=== PATIENT | female | born 1980 | race Hispanic/Latino ===

== ENCOUNTER 2021-04-29 14:56 | Emergency (ER) | payer OTHER ==
[~2021-04-29] VITALS: Ht 142.2 cm; Wt 68.0 kg
[2021-04-29] MEDS ORDERED: KETOROLAC TROMETHAMINE 60 MG/2 ML VIAL IM ONE (17:00)
[2021-04-29] MEDS ORDERED: KETOROLAC TROMETHAMINE 60 MG/2 ML VIAL ONE (17:05)
[2021-04-29] MEDS ORDERED: NAPROSYN500 MG PO (19:32)
[2021-04-29] MEDS ORDERED: CYCLOBENZAPRINE10 MG PO (19:33)
[2021-04-29 19:59] VITALS: BP 117/87
== END 2021-04-29 19:41 | disposition home or self-care (01) ==
LOC: FSED 15:36
DX: S00.83XA Contusion of other part of head, initial encounter (principal); M54.2 Cervicalgia; R51.9 Headache, unspecified; W20.8XXA Other cause of strike by thrown, projected or falling object, initial encounter; Y99.0 Civilian activity done for income or pay
CPT/HCPCS: 70450; 72125; 99283; J1885